=== PATIENT | male | born 1950 | race Caucasian/White ===

== ENCOUNTER 2018-06-25 09:05 | Day surgery (SDC) | payer MEDICARE, MEDICAID, OTHER ==
[2018-06-24 12:52] LABS: BASOPHILS # (AUTO) 0.1 X10'3 (0-0.2); BASOPHILS % (AUTO) 1.2 % (0-1); EOSINOPHILS # (AUTO) 0.2 X10'3 (0-0.9); EOSINOPHILS % (AUTO) 2.8 % (0-6); HEMATOCRIT 49.6 % (42.0-52.0); HEMOGLOBIN 16.3 g/dl (14.0-17.9); LYMPHOCYTES # (AUTO) 1.6 X10'3 (1.1-4.8); LYMPHOCYTES % (AUTO) 24.6 % (21-51); MEAN CORPUSCULAR HEMOGLOBIN 26.8 PG (27.0-31.0); MEAN CORPUSCULAR HGB CONC 32.9 g/dL (33.0-36.5); MEAN CORPUSCULAR VOLUME 81.5 FL (78-98); MEAN PLATELET VOLUME 7.5 FL (7.4-10.4); MONOCYTES # (AUTO) 0.7 X10'3 (0-0.9); MONOCYTES % (AUTO) 10.6 % (2-12); NEUTROPHILS % (AUTO) 60.8 % (42-75); PLATELET COUNT 281 X10'3 (140-440); RED BLOOD COUNT 6.08 X10'6 (4.70-6.10); RED CELL DISTRIBUTION WIDTH 16.1 % (11.5-14.5); WHITE BLOOD COUNT 6.5 X10'3 (4.5-11.0)
[2018-06-24 12:57] LABS: ALBUMIN 3.9 G/DL (3.4-5.0); ANION GAP 8 (8-16); BLOOD UREA NITROGEN 14 MG/DL (7-18); BUN/CREATININE RATIO 11.8 (5.4-32.0); CALCIUM 9.9 MG/DL (8.5-10.1); CHLORIDE 102 MMOL/L (99-107); CREATININE 1.19 MG/DL (0.60-1.10); GLUCOSE 84 MG/DL (70-104); POTASSIUM 4.3 MMOL/L (3.5-5.1); SODIUM 137 MMOL/L (135-145); TOTAL CARBON DIOXIDE 26.6 MMOL/L (24-32); eGFR 61 ML/MIN
[2018-06-24 13:00] LABS: PARTIAL THROMBOPLASTIN TIME 24 SECONDS (22-32); PROTHROMBIN TIME 10.4 SECONDS (9.0-12.0)
[~2018-06-25] VITALS: Ht 172.7 cm; Wt 77.4 kg
[2018-06-25] VITALS (12 sets, daily range): BP systolic 116–165; BP diastolic 73–92
[~2018-06-25 09:05] MED LIST: CALC-965 PO; CHOL2000 PO; CLOP75TA35 PO; COR3.125T PO; CYCL-394 PO; FENO145T38 PO; LEVO50TA67 PO; OXYC-580 PO; OXYC20TA55 PO; PANT40TA39 PO; ROSU20TA2 PO; SIN25C PO
[2018-06-25] MEDS ORDERED: diphenhydrAMINE 25mg capsule PO PRN (09:25)
[2018-06-25] MEDS ORDERED: normal saline 1,000 ML IV SCH (09:25)
[2018-06-25] MEDS ORDERED: LORazepam 0.5 MG tablet PO PRN (09:25)
[2018-06-25] MEDS ORDERED: OMEG1CAP46 PO (09:36)
[2018-06-25] MEDS ORDERED: CYAN100087 PO (09:36)
[2018-06-25] MEDS ORDERED: oxyCODONE IR 5mg (immed. release) tablet PO ONE ×2 (11:40→18:35)
[2018-06-25] MEDS ORDERED: LIDOcaine 1% (10mg/ml)w/preservative injection 20ml MDV ONE (12:59)
[2018-06-25] MEDS ORDERED: heparin 1,000unit/ml 10ml vial 10 ML ONE (12:59)
[2018-06-25] MEDS ORDERED: midazolam 2 mg/2 ml injection ONE (12:59)
[2018-06-25] MEDS ORDERED: iohexol 350MG/ML 100ml bottle IV ONE (12:59)
[2018-06-25] MEDS ORDERED: iohexol 350 MG/ML 50ML vial IV ONE (12:59)
[2018-06-25] MEDS ORDERED: fentaNYL/PF 50MCG/1 ML 2ML syringe ONE (13:00)
[2018-06-25] MEDS ORDERED: nitroGLYCERIN-Tridil 50MG/D5W 250 ML IV ONE (13:26)
[2018-06-25] MEDS ORDERED: normal saline 1000ml 1,000 ML IV SCH (14:35)
== END 2018-06-25 19:15 | disposition home or self-care (01) ==
LOC: SSTAY O 09:05
PROVIDERS: ATTEND Internal Medicine Cardiovascular Disease
DX: I25.10 Atherosclerotic heart disease of native coronary artery without angina pectoris (principal); I10 Essential (primary) hypertension; E78.5 Hyperlipidemia, unspecified; J44.9 Chronic obstructive pulmonary disease, unspecified
CPT/HCPCS: 36415; 80048; 85025; 85610; 85730; 93005; 93458; 99152; 99153; A6257; A6449; J1644; J2001; J2250; J3010; J7030; Q0163; Q9967; A4620; C1769; J3490

== ENCOUNTER 2019-06-17 11:04 | Emergency (ER) | payer MEDICAID, MEDICARE, OTHER ==
[~2019-06-17] VITALS: Ht 172.7 cm; Wt 79.5 kg
[~2019-06-17 11:04] MED LIST changes: +CYAN100087 PO; -CYCL-394 PO; +OMEG1CAP46 PO; +OXYC-481 PO; -OXYC-580 PO
[2019-06-17 11:55] LABS: BASOPHILS # (AUTO) 0.1 X10'3 (0-0.2); BASOPHILS % (AUTO) 0.5 % (0-1); EOSINOPHILS # (AUTO) 0.1 X10'3 (0-0.9); EOSINOPHILS % (AUTO) 1.4 % (0-6); HEMATOCRIT 48.1 % (42.0-52.0); HEMOGLOBIN 16.3 g/dl (14.0-17.9); LYMPHOCYTES # (AUTO) 1.1 X10'3 (1.1-4.8); LYMPHOCYTES % (AUTO) 10.9 % (21-51); MEAN CORPUSCULAR HEMOGLOBIN 28.5 PG (27.0-31.0); MEAN CORPUSCULAR HGB CONC 33.9 g/dL (33.0-36.5); MEAN CORPUSCULAR VOLUME 84.1 FL (78-98); MEAN PLATELET VOLUME 7.6 FL (7.4-10.4); MONOCYTES # (AUTO) 1.1 X10'3 (0-0.9); MONOCYTES % (AUTO) 10.9 % (2-12); NEUTROPHILS # (AUTO) 7.9 X10'3 (1.8-7.7); NEUTROPHILS % (AUTO) 76.3 % (42-75); PLATELET COUNT 259 X10'3 (140-440); RED BLOOD COUNT 5.72 X10'6 (4.70-6.10); RED CELL DISTRIBUTION WIDTH 16.2 % (11.5-14.5); WHITE BLOOD COUNT 10.4 X10'3 (4.5-11.0)
[2019-06-17 12:13] LABS: ALANINE AMINOTRANSFERASE 35 U/L (12-78); ALBUMIN 3.7 G/DL (3.4-5.0); ALBUMIN/GLOBULIN RATIO 0.8 (1.1-1.5); ALKALINE PHOSPHATASE 65 IU/L (46-116); ANION GAP 13 (8-16); ASPARTATE AMINO TRANSFERASE 23 U/L (10-37); BILIRUBIN,TOTAL 0.8 MG/DL (0.1-1.0); BLOOD UREA NITROGEN 15 MG/DL (7-18); CALCIUM 9.5 MG/DL (8.5-10.1); CHLORIDE 101 MMOL/L (99-107); CREATININE 1.36 MG/DL (0.60-1.10); GLUCOSE 113 MG/DL (70-104); POTASSIUM 4.1 MMOL/L (3.5-5.1); SODIUM 134 MMOL/L (135-145); TOTAL CARBON DIOXIDE 20.4 MMOL/L (24-32); TOTAL PROTEIN 8.3 G/DL (6.4-8.2); eGFR 52 ML/MIN
[2019-06-17 12:20] LABS: C-REACTIVE PROTEIN 13.84 MG/DL (0.0-0.5)
--- NOTE | 2019-06-17 13:20 | NUR ---
PER DR TEJEDA PATIENT ABLE TO BE DISCHARGED HOME TO SELF ISOLATION LONG CORONAVIRUS TEST IS ACCEPTED WITH FLU SWAB, CALL TO STEPDOWN NURSE FRANCA STATED PATIENT'S FLU SWAB IS VALID FOR SEND OUT FOR CORONAVIRUS TEST. CHARGE NURSE ELDA MADE AWARE.
[2019-06-17 13:38] VITALS: BP 139/77
[2019-06-18] MEDS ORDERED: AMOX-117 PO (17:54)
[2019-06-18] MEDS ORDERED: ONDA4TAB6 PO (17:58)
== END 2019-06-17 13:40 | disposition home or self-care (01) ==
LOC: ER 11:05
DX: J06.9 Acute upper respiratory infection, unspecified (principal); Z20.828 Contact with and (suspected) exposure to other viral communicable diseases; R10.9 Unspecified abdominal pain; R51 Headache; I25.10 Atherosclerotic heart disease of native coronary artery without angina pectoris; I25.2 Old myocardial infarction; J44.9 Chronic obstructive pulmonary disease, unspecified; M19.90 Unspecified osteoarthritis, unspecified site; G89.29 Other chronic pain; Z87.891 Personal history of nicotine dependence; Z98.61 Coronary angioplasty status; Z95.0 Presence of cardiac pacemaker; Z88.2 Allergy status to sulfonamides; Z88.5 Allergy status to narcotic agent; Z88.8 Allergy status to other drugs, medicaments and biological substances; Z79.899 Other long term (current) drug therapy
CPT/HCPCS: 36415; 71045; 80053; 83880; 84145; 85025; 86140; 87502; 87503; 87635; 99284

== ENCOUNTER 2019-06-18 16:14 | Emergency (ER) | payer OTHER ==
[~2019-06-18] VITALS: Ht 172.7 cm; Wt 74.0 kg
[~2019-06-18 16:14] MED LIST changes: -OXYC-481 PO; +OXYC-580 PO
[2019-06-18] MEDS ORDERED: AMOX-117 PO (17:54)
[2019-06-18] MEDS ORDERED: ONDA4TAB6 PO (17:58)
[2019-06-18 18:23] VITALS: BP 159/91
== END 2019-06-18 18:26 | disposition home or self-care (01) ==
LOC: ER 16:14
DX: R10.30 Lower abdominal pain, unspecified (principal); J01.00 Acute maxillary sinusitis, unspecified; H92.09 Otalgia, unspecified ear; I25.10 Atherosclerotic heart disease of native coronary artery without angina pectoris; I25.2 Old myocardial infarction; J44.9 Chronic obstructive pulmonary disease, unspecified; M19.90 Unspecified osteoarthritis, unspecified site; G89.29 Other chronic pain; Z98.61 Coronary angioplasty status; Z95.0 Presence of cardiac pacemaker; Z88.8 Allergy status to other drugs, medicaments and biological substances; Z79.2 Long term (current) use of antibiotics; Z79.899 Other long term (current) drug therapy
CPT/HCPCS: 74176; 99284